=== PATIENT | female | born 1965 | race Caucasian/White ===

== ENCOUNTER 2017-11-03 16:24 | Emergency (ER) | payer BC ==
[~2017-11-03] VITALS: Ht 160 cm; Wt 79.0 kg
[2017-11-03] VITALS (7 sets, daily range): BP systolic 85–132; BP diastolic 40–73; PULSE 78–86; RESP 16–18; TEMP 99; O2SAT 97–98
[~2017-11-03 16:24] MED LIST: LEXA10TA PO; MESA800 PO; MONT5CHW2 PO; OMEP20TA PO; PRED10 PO; ROSU20 PO; SYNT25TA PO; ZOFR4TAB3 SL
--- NOTE | 2017-11-03 17:14 | PD ---
HPI Chief Complaint: Abdominal Pain Time Seen by Provider: 17:08 Travel History International Travel<30 days: No Contact w/Intl Traveler<30days: No Traveled to known affect area: No History of Present Illness HPI Patient complaining of abdominal pain, crampy, intermittent, ranging from 3-6 out of 10 over the past 2 weeks. However today since about 1-1/2 hours ago the pain intensity started to go up to 9 out of 10, which is the reason the patient came in to be evaluated today. Patient stated that she lives with this type of pains and so she does not really pay much attention to it until it becomes unbearable then she comes in to get evaluated. Patient denies any associated fever, rash, diarrhea, chest pain, headache, neck pain, back pain, cough/runny nose/sore throat. No apparent aggravating or alleviating factors. No drug allergy Past medical history hypothyroidism, hypertension, hypercholesterolemia, IBS, Crohn's, gastroparesis, diverticulitis, patient has had kidney stone history with lithotripsy, as well as uterine ablation and hysterectomy. PFSH Past Medical History Hx Anticoagulant Therapy: No Anxiety: Yes Depression: Yes Cancer: No Cardiovascular Problems: Yes (HTN, CHOL) High Cholesterol: Yes Chemotherapy: No Cerebrovascular Accident: No Diabetes: No Diminished Hearing: No Diverticulitis: Yes Gastrointestinal Disorders: Yes (IBS, GASTROPARESIS, POLYPS) GERD: Yes Glaucoma: No Genitourinary: Yes (KIDNEY STONES) Hepatitis: No Hiatal Hernia: No Hypertension: Yes Kidney Stones: Yes (LITHOTRIPSY) Musculoskeletal: No Neurologic: No Reproductive: No Respiratory: No Immunizations Current: Yes Thyroid Disease: Yes (HYPOTHYROIDISM) ?: Not : 3 Para: 3 Miscarriage: 0 Tubal Ligation: Yes Past Surgical History Body Medical Devices: TITANIUM MARKER IN LEFT BREAST Section: Yes Genitourinary Surgery: Yes (LITHOTRIPSY) Gynecologic Surgery: Yes ( ABLATION HYSTERESTOMY) Hysterectomy: Yes Other Surgery: Yes (POLYPS REMOVED FROM COLON) Social History Alcohol Use: Yes (social) Tobacco Use: No (QUIT AGE 46) Substance Use: No Allergies-Medications (Allergen,Severity, Reaction): Coded Allergies: No Known Allergies (Verified Adverse Reaction, Unknown, 11/03/17) Reported Meds & Prescriptions Reported Meds & Active Scripts Active Reported Ranitidine (Ranitidine HCl) 150 Mg Cap 150 Mg PO DAILY Ativan (Lorazepam) 0.5 Mg Tab 0.5 Mg PO Q8H PRN [place] (Hydrocodone-Acetaminophen) 7.5-325 mg Tab 1 Tab PO Q6H PRN Vitamin D High Potency (Cholecalciferol) 1,000 Unit Cap 1,000 Units PO WEEKLY Crestor (Rosuvastatin Calcium) 5 Mg Tab 5 Mg PO DAILY Levothyroxine (Levothyroxine Sodium) 50 Mcg Tab 50 Mcg PO DIRECTED Balsalazide 750 Mg Cap 2,250 Mg PO TID [place] (Amlodipine-Olmesartan) 5-20 Mg Tab 1 Tab PO DAILY Review of Systems General / Constitutional: No: Fever Eyes: No: Visual changes HENT: No: Headaches Cardiovascular: No: Chest Pain or Discomfort Respiratory: No: Shortness of Breath Gastrointestinal: Positive: Abdominal Pain Genitourinary: No: Dysuria Musculoskeletal: No: Pain Skin: No Rash Neurologic: No: Weakness Psychiatric: No: Depression Endocrine: No: Polydipsia Hematologic/Lymphatic: No: Easy Bruising Physical Exam Narrative GENERAL: SKIN: Warm and dry. HEAD: Atraumatic. Normocephalic. EYES: Pupils equal and round. No scleral icterus. No injection or drainage. ENT: No nasal bleeding or discharge. Mucous membranes pink and moist. NECK: Trachea midline. No JVD. CARDIOVASCULAR: Regular rate and rhythm. RESPIRATORY: No accessory muscle use. Clear to auscultation. Breath sounds equal bilaterally. GASTROINTESTINAL: Abdomen soft, tender, nondistended. MUSCULOSKELETAL: Extremities without clubbing, cyanosis, or edema. No obvious deformities. NEUROLOGICAL: Awake and alert. No obvious cranial nerve deficits. Motor grossly within normal limits. Five out of 5 muscle strength in the arms and legs. Normal speech. PSYCHIATRIC: Appropriate mood and affect; insight and judgment normal. Data Data Last Documented VS Vital Signs Date Time Temp Pulse Resp B/P (MAP) Pulse Ox O2 Delivery O2 Flow Rate FiO2 11/03/17 19:24 78 16 98/69 (79) 98 Room Air 11/03/17 16:41 99.0 Orders Orders Complete Blood Count With Diff (11/03/17 17:15) Comprehensive Metabolic Panel (11/03/17 17:15) Lipase (11/03/17 17:15) Urinalysis - C+S If Indicated (11/03/17 17:15) Ct Abd/Pel W Iv Contrast(Rout) (11/03/17 17:15) Iv Access Insert/Monitor (11/03/17 17:15) Ecg Monitoring (11/03/17 17:15) Oximetry (11/03/17 17:15) NPO (11/03/17 17:15) Morphine Inj (Morphine Inj) (11/03/17 17:15) Ondansetron Inj (Zofran Inj) (11/03/17 17:15) Metronidazole 500 Mg Inj (Flagyl 500 Mg (11/03/17 17:15) Sodium Chlor 0.9% 1000 Ml Inj (Ns 1000 M (11/03/17 17:15) Levofloxacin 500 Mg Premix Inj (Levaquin (11/03/17 17:15) Iohexol 350 Inj (Omnipaque 350 Inj) (11/03/17 19:00) Labs Laboratory Tests Test 11/03/17 17:30 White Blood Count 14.6 TH/MM3 Red Blood Count 4.51 MIL/MM3 Hemoglobin 13.7 GM/DL Hematocrit 41.0 % Mean Corpuscular Volume 90.9 FL Mean Corpuscular Hemoglobin 30.4 PG Mean Corpuscular Hemoglobin Concent 33.5 % Red Cell Distribution Width 12.1 % Platelet Count 310 TH/MM3 Mean Platelet Volume 9.0 FL Neutrophils (%) (Auto) 87.2 % Lymphocytes (%) (Auto) 4.7 % Monocytes (%) (Auto) 5.4 % Eosinophils (%) (Auto) 1.6 % Basophils (%) (Auto) 1.1 % Neutrophils # (Auto) 12.7 TH/MM3 Lymphocytes # (Auto) 0.7 TH/MM3 Monocytes # (Auto) 0.8 TH/MM3 Eosinophils # (Auto) 0.2 TH/MM3 Basophils # (Auto) 0.2 TH/MM3 CBC Comment DIFF FINAL Differential Comment Blood Urea Nitrogen 16 MG/DL Creatinine 0.87 MG/DL Random Glucose 107 MG/DL Total Protein 8.4 GM/DL Albumin 4.1 GM/DL Calcium Level 8.8 MG/DL Alkaline Phosphatase 121 U/L Aspartate Amino Transf (AST/SGOT) 17 U/L Alanine Aminotransferase (ALT/SGPT) 19 U/L Total Bilirubin 0.5 MG/DL Sodium Level 138 MEQ/L Potassium Level 3.1 MEQ/L Chloride Level 105 MEQ/L Carbon Dioxide Level 26.1 MEQ/L Anion Gap 7 MEQ/L Estimat Glomerular Filtration Rate 68 ML/MIN Lipase 128 U/L MDM Medical Decision Making Medical Screen Exam Complete: Yes Emergency Medical Condition: Yes Medical Record Reviewed: Yes Differential Diagnosis Colitis versus diverticulitis versus Crohn's versus pancreatitis versus kidney stones versus diverticular abscess versus diverticular perforation Narrative Course CBC shows mild leukocytosis of 14.6, left shift of 87% neutrophilia, normal platelet count, no anemia.... Consistent with bacterial infection Elect lites are all within normal limits with the exception of mild low potassium of 3.1. Normal kidney and liver functions as well as pancreatic functions. CT is read by the radiologist as no acute findings with the exception of small left renal cyst and a splenic granulomata. Patient clinically has evidence of colitis and will be treated with p.o. antibiotics and discharge as the CAT scan does not show any evidence of abscess or or perforation. Diagnosis Primary Impression: COLITIS Patient Instructions: General Instructions, Infectious Colitis (ED) Scripts Tramadol (Ultram) 50 Mg Tab 50 MG PO Q8H Y for PAIN, #14 TAB 0 Refills Prov: Michael Stovall MD 11/03/17 Metronidazole (Flagyl) 500 Mg Tab 500 MG PO TID for Infection for 7 Days, #21 TAB 0 Refills Prov: Michael Stovall MD 11/03/17 Ciprofloxacin (Cipro) 500 Mg Tab 500 MG PO BID for Infection for 5 Days, #10 TAB 0 Refills Prov: Michael Stovall MD 11/03/17 Disposition: DISCHARGE HOME Condition: Stable Michael Stovall MD Nov 03, 2017 17:14
[2017-11-03] MEDS ORDERED: LEVOFLOXACIN 500 MG PREMIX INJ 100 ML IV ONE (17:15)
[2017-11-03] MEDS ORDERED: SODIUM CHLOR 0.9% 1000 ML INJ 1,000 ML IV SCH (17:15)
[2017-11-03] MEDS ORDERED: MORPHINE SULFATE 4 MG/ML INJ IV PUSH ONE (17:15)
[2017-11-03] MEDS ORDERED: metroNIDAZOLE 500 MG INJ 100 ML IV ONE (17:15)
[2017-11-03] MEDS ORDERED: ONDANSETRON HCL 4 MG/2 ML VIAL IVP ONE (17:15)
[2017-11-03] MEDS ORDERED: LORA-392 PO (17:26)
[2017-11-03] MEDS ORDERED: BALS750C PO (17:26)
[2017-11-03] MEDS ORDERED: VITA100052 PO (17:26)
[2017-11-03] MEDS ORDERED: ROSU5 PO (17:26)
[2017-11-03] MEDS ORDERED: LEVO50TA4 PO (17:26)
[2017-11-03] MEDS ORDERED: HYDR-3288 PO (17:26)
[2017-11-03] MEDS ORDERED: AZOR5TAB2 PO (17:26)
[2017-11-03 18:00] LABS: AUTOMATED NEUTROPHIL # 12.7 TH/MM3 (1.8-7.7); BASOPHIL # 0.2 TH/MM3 (0-0.2); BASOPHIL % 1.1 % (0.0-2.0); EOSINOPHIL # 0.2 TH/MM3 (0-0.4); EOSINOPHIL % 1.6 % (0.0-4.0); HEMOGLOBIN 13.7 GM/DL (11.6-15.3); LYMPH % 4.7 % (9.0-44.0); LYMPHOCYTE # 0.7 TH/MM3 (1.0-4.8); MEAN CELL VOLUME 90.9 FL (80.0-100.0); MEAN CORPUSCULAR HEMOGLOBIN 30.4 PG (27.0-34.0); MEAN CORPUSCULAR HGB CONC 33.5 % (32.0-36.0); MONO % 5.4 % (0.0-8.0); MONOCYTE # 0.8 TH/MM3 (0-0.9); NEUT % 87.2 % (16.0-70.0); PLATELET COUNT 310 TH/MM3 (150-450); RED BLOOD COUNT 4.51 MIL/MM3 (4.00-5.30); RED CELL DISTRIBUTION WIDTH 12.1 % (11.6-17.2); WHITE BLOOD COUNT 14.6 TH/MM3 (4.0-11.0)
[2017-11-03 18:08] LABS: CHLORIDE 105 MEQ/L (98-107); SODIUM (NA) 138 MEQ/L (136-145)
[2017-11-03 18:11] LABS: CALCIUM 8.8 MG/DL (8.5-10.1)
[2017-11-03 18:12] LABS: ALBUMIN 4.1 GM/DL (3.4-5.0); BICARBONATE 26.1 MEQ/L (21.0-32.0); BLOOD UREA NITROGEN 16 MG/DL (7-18); GLUCOSE,RANDOM 107 MG/DL (74-106)
[2017-11-03 18:14] LABS: ALT (GPT) 19 U/L (10-53); AST (GOT) 17 U/L (15-37)
[2017-11-03 18:15] LABS: CREATININE 0.87 MG/DL (0.50-1.00); GLOMERULAR FILTRATION RATE 68 ML/MIN (>89)
[2017-11-03 18:16] LABS: TOTAL BILIRUBIN ADULT 0.5 MG/DL (0.2-1.0); TOTAL PROTEIN 8.4 GM/DL (6.4-8.2)
[2017-11-03 18:17] LABS: ALKALINE PHOSPHATASE 121 U/L (45-117)
[2017-11-03] MEDS ORDERED: RANI150C PO (18:23)
[2017-11-03] MEDS ORDERED: IOHEXOL 350 MG/ML 10 ML VIAL (for RAD DIAG) IVCONTRAST ONE (19:00)
--- NOTE | 2017-11-03 19:49 | RADRPT ---
EXAM DATE/TIME: 11/03/2017 18:55 [facility] COMPARISON: CT ABDOMEN & PELVIS W CONTRAST, April 16, 2015, 21:59. INDICATIONS : Non specific abdominal pain. IV CONTRAST: 95 cc Omnipaque 350 (iohexol) IV ORAL CONTRAST: No oral contrast ingested. RADIATION DOSE: 14.79 CTDIvol (mGy) MEDICAL HISTORY : Hypertension. Crohns disease. Diverticulitis.Renal stone. SURGICAL HISTORY : Hysterectomy. Lithotripsy. ENCOUNTER: Initial ACUITY: 2 days PAIN SCALE: 5/10 LOCATION: pelvis TECHNIQUE: Volumetric scanning of the abdomen and pelvis was performed. Using automated exposure control and ad justment of the mA and/or kV according to patient size, radiation dose was kept as low as reasonably achievable to obtain optimal diagnostic quality images. DICOM format image data is available electro nically for review and comparison. FINDINGS: Minimal dependent atelectasis in the lungs. Mild fatty liver. Spleen, adrenals, kidneys and pancreas unremarkable. Small left renal cyst. No gallstones or biliary ductal dilatation. CONCLUSION: 1. No acute findings. Small left renal cyst. Splenic granulomata. Estiven Loredo MD on November 03, 2017 at 19:43 Board Certified Radiologist. This report was verified electronically.
[2017-11-03] MEDS ORDERED: CIPR-9 PO (20:04)
[2017-11-03] MEDS ORDERED: METR-1 PO (20:04)
[2017-11-03] MEDS ORDERED: TRAM50 PO (20:04)
[2017-11-03] MEDS ORDERED: methylPREDNISolone SOD SUCC 125 MG/2 ML VIAL IV PUSH ONE (20:15)
== END 2017-11-03 22:14 | disposition home or self-care (01) ==
LOC: PHED 16:24
DX: A09 Infectious gastroenteritis and colitis, unspecified (principal); E87.6 Hypokalemia; E03.9 Hypothyroidism, unspecified; E78.00 Pure hypercholesterolemia, unspecified; I10 Essential (primary) hypertension; K50.90 Crohn's disease, unspecified, without complications; K21.9 Gastro-esophageal reflux disease without esophagitis; F32.9 Major depressive disorder, single episode, unspecified; Z87.891 Personal history of nicotine dependence
CPT/HCPCS: 74177; 80053; 83690; 85025; 96365; 96367; 96375; 99285; J1956; J2270; J2405; J2930; J7030; Q9967